=== PATIENT | female | born 1955 | race Hispanic/Latino ===

== ENCOUNTER 2017-09-22 06:17 | Day surgery (SDC) | payer BC ==
[2017-09-22] MEDS ORDERED: DILAUDID IV PRN (06:59)
[2017-09-22] MEDS ORDERED: ZOFRAN IV PRN ×2 (06:59→10:19)
[2017-09-22] MEDS ORDERED: ANCEF/STERILE WATER 2 GM/20 ML IV NR (07:00)
[2017-09-22] MEDS ORDERED: VERSED IV NR (07:00)
[2017-09-22] MEDS ORDERED: NEURONTIN PO NR (07:00)
[2017-09-22] MEDS ORDERED: LACTATED RINGERS 1,000 ML IV SCH (07:00)
[2017-09-22] MEDS ORDERED: NACL BACTERIOSTATIC INFILTRATI ONE (07:03)
[2017-09-22] MEDS ORDERED: DECADRON ONE (07:11)
[2017-09-22] MEDS ORDERED: DIPRIVAN 10 MG/ML IV ONE (07:11)
[2017-09-22] MEDS ORDERED: XYLOCAINE MPF 2% ONE (07:12)
[2017-09-22] MEDS ORDERED: MARCAINE 0.5% 0 ML INFILTRATI ONE (07:24)
[2017-09-22] MEDS ORDERED: ADRENALIN ONE (07:24)
--- NOTE | 2017-09-22 07:51 | Anesthesia Day of Surgery ---
Anesthesia Day of Surgery - Day of Surgery Patient Examined: Yes Patient H&P Reviewed: Yes Patient is NPO: Yes
--- NOTE | 2017-09-22 07:52 | Anesthesia Consultation ---
Anesthesia Consult and Med Hx Date of service: 09/22/17 - Airway Anesthetic Teeth Evaluation: Good ROM Head & Neck: Adequate Mental/Hyoid Distance: Adequate Mallampati Class: Class I Intubation Access Assessment: Good - Pulmonary Exam CTA: Yes - Cardiac Exam Cardiac Exam: RRR - Pre-Operative Health Status ASA Pre-Surgery Classification: ASA2 Proposed Anesthetic Plan: General - Pulmonary Hx Smoking: No Hx Asthma: Yes ( CHILD ONLY) Hx Sleep Apnea: No (GENARO PRE SCREEN LOW RISK) - Cardiovascular System Hx Hypertension: No
[2017-09-22] MEDS ORDERED: ePHEDrine 50 MG/5 ML-0.9% NACL IV ONE (08:11)
[2017-09-22] MEDS ORDERED: ROBINUL ONE (08:42)
[2017-09-22] MEDS ORDERED: NACL 0.9% 1000 ML 1,000 ML ONE (08:44)
--- NOTE | 2017-09-22 09:44 | Progress Note ---
Subjective Date of service: 09/22/17 Interval history: patient was brought to the OR for hip scope procedure, anaesthesia performed anaesthesia. she was prepped and drapedand positioned in the OR table. Before time out we checked to make sure if all instruments and equipments are working. i realized that 70 deg scope was broken and was not working. staff couldnt find anpther 70 deg scope. we had to cancel the case as proper equipment and instruments not availble. Objective Vital signs: Vital Signs - 12hr 09/22/17 09/22/17 06:53 06:57 Temperature 98.3 F 98.3 F Pulse Rate 83 96 H Respiratory 12 12 Rate Blood Pressure 133/79 133/79 O2 Sat by Pulse 99 99 Oximetry
--- NOTE | 2017-09-22 09:46 | Short Stay Summary ---
Short Stay Documentation - Allergies and Medications Current Medications: Allergies No Known Allergies Allergy (Verified 09/12/17 15:35) Home Medications Medication Instructions Recorded Confirmed Last Taken Type Ca/D3/Mag Ox/Zinc/Phone Representative/Domingo/Bor 1 tab PO DAILY 09/12/17 09/22/17 09/21/17 History [Calcium 600-D3 Plus Caplet] Gabapentin [Neurontin] 300 mg PO DAILY 09/12/17 09/22/17 09/21/17 History Multivit-Min/FA/Lycopen/Lutein 1 each PO DAILY 09/12/17 09/22/17 09/13/17 History [Centrum Silver Tablet] Naproxen Sodium [Aleve] 220 mg PO BID 09/12/17 09/22/17 09/13/17 History Active Medications Cefazolin Sodium (Ancef/Sterile Water 2 Gm/20 Ml) 2 gm IV PREOP NR Stop: 09/22/17 23:59 Gabapentin (Neurontin) 300 mg PO PREOP NR Stop: 09/22/17 10:00 Last Admin: 09/22/17 07:31 Dose: 300 mg Hydromorphone HCl (Dilaudid) 0.5 mg IV Q10MIN PRN PRN Reason: Pain , Severe (7-10) Stop: 09/22/17 10:00 Lactated Ringer's (Lactated Ringers) 1,000 mls @ 100 mls/hr IV DIRECT LUIS ENRIQUE Last Admin: 09/22/17 07:33 Dose: 100 mls/hr Midazolam HCl (Versed) 2 mg IV PREOP NR Stop: 09/22/17 23:59 Last Admin: 09/22/17 07:34 Dose: 2 mg Ondansetron HCl (Zofran) 4 mg IV ONCE PRN PRN Reason: Nausea And Vomiting Stop: 09/22/17 10:00 Short Stay Discharge Plan Activity: no restrictions Weight Bearing Status: Full Weight Bearing Diet: regular Additional Instructions: pain meds prn plan is to reschedule the surgery as the hip arthroscope 70 deg was broken and couldnot be used. Follow up with: ANNETTE RUEDA ANP [Primary Care Provider] - 7 Days
[2017-09-22 10:31] VITALS: BP 140/74
--- NOTE | 2017-09-22 10:40 | Post Anesthesia Evaluation ---
- Post Anesthesia Evaluation Patient Participated: Yes Airway Patent: Yes Stable Respiratory Function: Yes Nausea/Vomiting: No Temp > 96.8F: Yes Pain Manageable: Yes Adequeate Hydration: Yes Anesthesia Complications: No
== END 2017-09-22 10:58 | disposition home or self-care (01) ==
LOC: OR 06:17
PROVIDERS: ATTEND Orthopaedic Surgery
DX: S73.192A Other sprain of left hip, initial encounter (principal); Z90.11 Acquired absence of right breast and nipple; Z85.3 Personal history of malignant neoplasm of breast; Z92.21 Personal history of antineoplastic chemotherapy; Z92.3 Personal history of irradiation; Z98.890 Other specified postprocedural states; X58.XXXA Exposure to other specified factors, initial encounter; Y93.89 Activity, other specified; Y92.89 Other specified places as the place of occurrence of the external cause; Y99.8 Other external cause status; Z53.8 Procedure and treatment not carried out for other reasons
CPT/HCPCS: 86850; 86900; 86901; J0690; J1100; J1170; J2250; J2405; J2704; J7030; J7120; J0171

== ENCOUNTER 2017-10-07 06:22 | Day surgery (SDC) | payer BC ==
[~2017-10-07 06:22] MED LIST: ANCEF/STERILE WATER 2 GM/20 ML IV NR
[2017-10-07] MEDS ORDERED: NACL BACTERIOSTATIC INFILTRATI ONE ×2 (06:51→07:46)
[2017-10-07] MEDS ORDERED: ZOFRAN ONE (07:09)
[2017-10-07] MEDS ORDERED: DECADRON ONE (07:09)
[2017-10-07] MEDS ORDERED: DIPRIVAN 10 MG/ML IV ONE (07:09)
[2017-10-07] MEDS ORDERED: XYLOCAINE MPF 2% ONE (07:09)
[2017-10-07] MEDS ORDERED: DILAUDID ONE ×2 (07:09→09:43)
[2017-10-07] MEDS ORDERED: ZOFRAN IV PRN ×2 (07:30→08:00)
[2017-10-07] MEDS ORDERED: ADRENALIN ONE ×2 (07:42→07:46)
[2017-10-07] MEDS ORDERED: XYLOCAINE 1%/ EPI 1:100,000 INFILTRATI ONE (07:46)
--- NOTE | 2017-10-07 07:49 | Anesthesia Consultation ---
Anesthesia Consult and Med Hx Date of service: 10/07/17 - Airway Anesthetic Teeth Evaluation: Good ROM Head & Neck: Adequate Mental/Hyoid Distance: Adequate Mallampati Class: Class II - Pulmonary Exam CTA: Yes - Cardiac Exam Cardiac Exam: RRR - Pre-Operative Health Status ASA Pre-Surgery Classification: ASA2 Proposed Anesthetic Plan: General - Pulmonary Hx Smoking: No Hx Asthma: Yes ( CHILD ONLY) Hx Sleep Apnea: No (GENARO PRE SCREEN LOW RISK) - Cardiovascular System Hx Hypertension: No
--- NOTE | 2017-10-07 07:50 | Anesthesia Day of Surgery ---
Anesthesia Day of Surgery - Day of Surgery Patient Examined: Yes Patient H&P Reviewed: Yes Patient is NPO: Yes
[2017-10-07] MEDS ORDERED: NACL 0.9% IR ONE ×2 (07:55)
[2017-10-07] MEDS ORDERED: ADRENALIN IR ONE (07:55)
[2017-10-07] MEDS ORDERED: MARCAINE 0.5% INFILTRATI ONE (07:55)
[2017-10-07] MEDS ORDERED: NEURONTIN PO NR (08:00)
[2017-10-07] MEDS ORDERED: LACTATED RINGERS 1,000 ML IV SCH ×2 (08:00)
[2017-10-07] MEDS ORDERED: NACL 0.9% 1000 ML 1,000 ML IV SCH (08:00)
[2017-10-07] MEDS ORDERED: NARCAN 0.4 MG/1 ML IV PRN (08:00)
[2017-10-07] MEDS ORDERED: DILAUDID IV PRN ×2 (08:00)
[2017-10-07] MEDS ORDERED: PEPCID IV NR (08:00)
[2017-10-07] MEDS ORDERED: VERSED IV NR (08:00)
[2017-10-07] MEDS ORDERED: DEMEROL IV PRN (08:00)
[2017-10-07] MEDS ORDERED: ZEMURON IV ONE (08:02)
[2017-10-07] MEDS ORDERED: ROBINUL ONE ×2 (08:37→11:42)
[2017-10-07] MEDS ORDERED: NACL 0.9% 1000 ML 1,000 ML ONE (08:39)
[2017-10-07] MEDS ORDERED: ePHEDrine 50 MG/5 ML-0.9% NACL IV ONE (08:47)
[2017-10-07] MEDS ORDERED: NEO SYNEPHRINE ONE (09:18)
[2017-10-07] MEDS ORDERED: NACL 0.9% 100 ML ONE (09:33)
--- NOTE | 2017-10-07 11:35 | Short Stay Summary ---
Short Stay Documentation - Allergies and Medications Current Medications: Allergies No Known Allergies Allergy (Verified 09/12/17 15:35) Home Medications Medication Instructions Recorded Confirmed Last Taken Type Ca/D3/Mag Ox/Zinc/Plumbing Assembler/Domingo/Bor 1 tab PO DAILY 09/12/17 10/07/17 10/06/17 History [Calcium 600-D3 Plus Caplet] Gabapentin [Neurontin] 300 mg PO DAILY 09/12/17 10/07/17 10/06/17 History Multivit-Min/FA/Lycopen/Lutein 1 each PO DAILY 09/12/17 10/07/17 1 Week Ago History [Centrum Silver Tablet] ~09/30/17 Naproxen Sodium [Aleve] 220 mg PO BID 09/12/17 10/07/17 1 Week Ago History ~09/30/17 Active Medications Cefazolin Sodium (Ancef/Sterile Water 2 Gm/20 Ml) 2 gm IV PREOP NR Stop: 10/07/17 16:00 Celecoxib (Celebrex) 200 mg PO PREOP NR Stop: 10/07/17 21:00 Last Admin: 10/07/17 07:35 Dose: 200 mg Famotidine (Pepcid) 20 mg IV PREOP NR Stop: 10/07/17 21:00 Last Admin: 10/07/17 07:36 Dose: 20 mg Gabapentin (Neurontin) 300 mg PO PREOP NR Stop: 10/07/17 21:00 Last Admin: 10/07/17 07:35 Dose: 300 mg Hydromorphone HCl (Dilaudid) 0.5 mg IV Q10MIN PRN PRN Reason: Pain , Severe (7-10) Stop: 10/07/17 15:00 Hydromorphone HCl (Dilaudid) 0.25 mg IV Q10MIN PRN PRN Reason: Pain, Moderate (4-6) Stop: 10/07/17 15:00 Lactated Ringer's (Lactated Ringers) 1,000 mls @ 100 mls/hr IV DIRECT LUIS ENRIQUE Last Admin: 10/07/17 07:33 Dose: 100 mls/hr Sodium Chloride (Nacl 0.9% 1000 Ml) 1,000 mls @ 100 mls/hr IV DIRECT LUIS ENRIQUE Meperidine HCl (Demerol) 25 mg IV ONCE PRN PRN Reason: Shivering Stop: 10/07/17 15:00 Midazolam HCl (Versed) 2 mg IV PREOP NR Stop: 10/07/17 23:59 Last Admin: 10/07/17 07:50 Dose: 2 mg Naloxone HCl (Narcan 0.4 Mg/1 Ml) 0.1 mg IV Q2MIN PRN PRN Reason: Res Rate </= 8 or 02 SAT < 92% Ondansetron HCl (Zofran) 4 mg IV ONCE PRN PRN Reason: Nausea And Vomiting Ondansetron HCl (Zofran) 8 mg IV ONCE PRN PRN Reason: Nausea And Vomiting Stop: 10/07/17 15:00 Short Stay Discharge Plan Activity: advance as tolerated, up only with assistance, fall precautions Weight Bearing Status: Non-Weight Bearing Diet: regular Wound: keep clean and dry, change dressing, per your surgeon's advice Special Instructions: no heavy lifting, physical therapy Durable Medical Equipment Needed Upon Discharge: Crutches Additional Instructions: ice pacs left hip area 4-5 times a day 20 min each time pain meds prn EC asa 325 MG I TAB PO bid FOR 2 WEEKS NWB with 2 crutches for 3-4 weeks. follw Protocol sheet follow up in 2 weeks for stitch removal Follow up with: ANNETTE RUEDA ANP [Primary Care Provider] - 7 Days MANA LAZO MD [Staff Physician] - 14 Days
[2017-10-07] MEDS ORDERED: BLOXIVERZ ONE (11:42)
[2017-10-07] MEDS: DILAUDID IV PRN ×2 (12:15→12:37)
--- NOTE | 2017-10-07 13:58 | XRay Report ---
LEFT HIP, ONE VIEW History: Osteoarthritis, extensive debridement, labral repair. Findings: 4 AP fluoroscopic images of the left hip were obtained during surgery. The images demonstrate placement of an arthroscope and aspiration needles in the left hip joint. There is no evidence for fracture or bone lesion. Please correlate with the procedural report as needed.
[2017-10-07] MEDS ORDERED: TRANSDERM-SCOP TD ONE (16:36)
[2017-10-07 18:55] VITALS: BP 140/53
--- NOTE | 2017-10-07 19:22 | Post Anesthesia Evaluation ---
- Post Anesthesia Evaluation Patient Participated: Yes Airway Patent: Yes Stable Respiratory Function: Yes Nausea/Vomiting: No Temp > 96.8F: Yes Pain Manageable: Yes Adequeate Hydration: Yes Anesthesia Complications: No Block Receding Appropriately: Not Applicable Patient on Ventilator: No
== END 2017-10-07 17:50 | disposition home or self-care (01) ==
LOC: OR 06:22
PROVIDERS: ATTEND Orthopaedic Surgery
DX: M16.2 Bilateral osteoarthritis resulting from hip dysplasia (principal); J45.909 Unspecified asthma, uncomplicated; Z53.8 Procedure and treatment not carried out for other reasons
CPT/HCPCS: 29916; 73501; 86850; 86900; 86901; 97110; 97116; 97161; A4217; C1713; J0171; J0690; J1100; J1170; J2250; J2370; J2405; J2704; J2710; J7030; J7120